=== PATIENT | female | born 1995 | race Caucasian/White ===

== ENCOUNTER 2023-02-13 08:59 | Emergency (ER) | payer MEDICAID, SELFPAY ==
[2023-02-13 09:01] VITALS: BP 126/64; PULSE 94; RESP 17; TEMP 37; O2SAT 99; BMI 42.3
[2023-02-13] MEDS: DiphenhydrAMINE 50 MG/ML Syringe 25 MG IV (09:17)
[2023-02-13] MEDS: MethylPREDNISolone 125 MG/2 ML Vial IV (09:17)
[2023-02-13] MEDS: Famotidine 200 MG/20 ML MDV 20 MG in 0.9% Normal Saline (Pres. free 8 ML 300 MG IV (09:24)
--- NOTE | 2023-02-13 09:39 | EDS_ITS ---
HPI History of Present Illness Chief Complaint: Allergic Reaction Detail of Chief Complaint: Allergic reaction Informant: patient and spouse/S.O. Onset/Context/Timing Onset: Today Context: Sudden Onset Timing: Continuous Quality: Itchy red rash Location: Face, chest and upper extremity Current Severity: Moderate Maximum Severity: Moderate Worsened by: Exposure to cat, which patient has allergy to Relieved by: Nothing Associated Symptoms Associated Symptoms: puretic erythematous rash Narrative Narrative: Patient presents with pruritic erythematous rash. She was exposed to cat. Her significant other daughter has a cat when she lives with her mom. He does live near the [facility]. She has not been gardening or out in the [facility]. She apparently was treated with steroid cream with no improvement. She denies swelling of her lips, tongue or throat. She denies change in voice. She denies drooling. She denies shortness of breath. She denies nausea or vomiting. She denies orthostatic symptoms. Prior similar symptoms: Yes Recent Illness/Hospitalization: No [facility] Medical History Depression Eczema Home Medications fluoxetine 10 mg capsule 20 mg PO DAILY 02/13/23 [History Last Taken Unknown] hydroxyzine HCl 25 mg tablet 25 mg PO Q6H PRN Itching #20 tabs 02/13/23 [Rx Last Taken Unknown] prednisone 10 mg tablet 10 mg PO UD #33 tabs 02/13/23 [Rx Last Taken Unknown] Allergy/AdvReac Type Severity Reaction Status Date / Time cat dander Allergy Rash Verified 02/13/23 09:04 Social History (Updated 02/13/23 @ 09:[address] Joseph Zambrano MD) household members: significant other Smoking Status: Former smoker ROS ROS ED Constitutional Constitutional ED: Denies chills, fever(s), subjective, sweats or weight loss Eyes Eyes: Denies blurry vision, change in vision or diplopia ENT ENT ED: Denies ear pain, rhinorrhea or sore throat Cardiovascular Cardiovascular: Denies chest pain or palpitations Respiratory/Chest Respiratory/Chest: Denies cough, dyspnea or dyspnea on exertion Gastrointestinal Gastrointestinal: Denies diarrhea, nausea or vomiting Musculoskeletal Musculoskeletal: Denies arthralgias, back pain, myalgias or neck pain Integumentary Reports rash Neurologic Neurologic: Denies headache(s) or paresthesias Endocrine Endocrinology: Denies cold intolerance or heat intolerance Hematologic/Lymphatic Hematologic/Lymphatic: Reports systems reviewed and no addt'l complaints, except as documented EXAM Physical Exam Const Vital Signs: 02/13/23 09:01 Temperature 98.6 F Temperature Source Oral Pulse Rate 94 Respiratory Rate 17 Blood Pressure 126/64 H Blood Pressure Mean 84 Pulse Ox 99 Oxygen Delivery Method Room Air Positive well nourished, well developed and obese Constitutional Narrative: Patient appears uncomfortable. Patient has rash that is predominately involving the face anterior neck and upper extremity that is erythematous weepy and consistent with a contact dermatitis. General Appearance ED: well developed; Negative for cyanotic, diaphoretic or NAD Nutritional Appearance: obese HEENT Reports moist mucous membranes HEENT Narrative: There is no evidence of angioedema. Nares patent. Uvula midline. No deviation of the tongue with protrusion. No deviation of the uvula. Eyes PERRL and EOMs intact bilaterally General Eye ED: Negative for pale conjunctiva or scleral icterus Neck no lymphadenopathy, supple and no JVD Chest Wall inspection of chest normal and palpation of chest normal Resp normal respiratory effort and clear to auscultation bilaterally Cardio regular rate, regular rhythm, S1 normal heart sound, S2 normal heart sound and no murmurs GI normal to inspection, nondistended, normoactive bowel sounds, non-tender, non- distended and no masses; Negative for hepatosplenomegaly Extremity Extremity Narrative: Rash consistent with contact dermatitis General Extremety ED: Negative for edema, tenderness or other findings General Extremity: Negative for edema or other findings Neuro oriented x3, CN's II-XII intact bilaterally and no sensory deficits noted Sensorium / Orientation: alert Psych mental status grossly normal Skin Skin Narrative: Contact dermatitis and involving the face, anterior neck, upper anterior chest and upper extremities. MDM MDM MDM Narrative Medical decision making narrative: I was asked to see patient immediately since he is having allergic reaction. Patient's reaction is consistent with a contact dermatitis. There is no evidence of systemic infection that would suggest an IgE mediated response. She was treated with H1 H2 albert and systemic steroids. She was discharged with tapering dose of prednisone and hydroxyzine for her itching. Prior records were reviewed. She does have allergy to cats. She also is on antidepressant m edication Discharge Plan Triage Chief Complaint: Allergic Reaction ED Provider: Zambrano,Joseph Dx/Rx/DC Orders Clinical Impression: Contact dermatitis Instructions: ED Contact Dermatitis Prescriptions: New prednisone 10 mg tablet 10 mg PO UD Qty: 33 0RF Rx Instructions: Take 4 tablets daily for 3 days, then 3 daily for 3 days, then 2 daily for 3 days, then 1 a day for 3 days then 1 QOD for 3 doses. hydroxyzine HCl 25 mg tablet 25 mg PO Q6H PRN (Reason: Itching) Qty: 20 0RF No Action fluoxetine 10 mg capsule 20 mg PO DAILY Primary Care Provider: Chilo Christensen Referrals: Chilo Christensen [Other] - 1 Week if not improving Disposition Disposition: Home, Self Care
[2023-02-13 10:46] VITALS: BP 115/89; PULSE 75; RESP 14; O2SAT 100
== END 2023-02-13 10:52 | disposition home or self-care (01) ==
PROVIDERS: Emergency Provider Emergency Medicine; Visit Provider Emergency Medicine
DX: L25.9 Unspecified contact dermatitis, unspecified cause (principal); Z87.891 Personal history of nicotine dependence; Z79.52 Long term (current) use of systemic steroids; E66.9 Obesity, unspecified
CPT/HCPCS: 96374; 96375; 99283; A4216; J3490